=== PATIENT | female | born 1995 ===

== ENCOUNTER 2024-01-06 00:06 | Emergency (ER) | payer SELFPAY ==
[2024-01-06 00:11] VITALS: BP 132/78; PULSE 97; RESP 20; TEMP 36.6; O2SAT 100
== END 2024-01-06 03:02 | disposition left against medical advice (07) ==
LOC: ANHED 03:00
DX: S71.151A Open bite, right thigh, initial encounter (principal); W54.0XXA Bitten by dog, initial encounter
CPT/HCPCS: 99199